=== PATIENT | female | born 1950 | race Caucasian/White ===

== ENCOUNTER 2018-07-11 13:04 | Emergency (ER) | payer MEDICARE, BC, SELFPAY ==
[2018-07-11 13:17] VITALS: BP 100/68; PULSE 74; RESP 18; TEMP 36.8; O2SAT 98; BMI 35.5
[2018-07-11] MEDS: SODIUM CHLORIDE 0.9% 1,000 ML 1000 ML IV (14:25)
[2018-07-11 14:39] LABS: INR 0.9 (0.9-1.3); Prothrombin Time 10.6 SECONDS (10.1-12.7)
[2018-07-11 14:40] LABS: Add Manual Diff / Slide Review NO; Basophils Absolute Auto 100 /uL (0-100); Basophils Percent Auto 0.7 % (0-2); Eosinophils Absolute Auto 100 /uL (0-450); Eosinophils Percent Auto 1.7 % (2-4); Hematocrit 42.1 % (36-46); Hemoglobin 13.9 g/dL (12.0-16.0); Lymphocytes Absolute Auto 1700 /uL (1100-4500); Lymphocytes Percent Auto 19.9 % (25-40); Mean Corpuscular Hemoglobin 30.9 PG (26-34); Mean Corpuscular Volume 93.6 fL (80-100); Monocytes Absolute Auto 700 /uL (0-900); Monocytes Percent Auto 7.7 % (3-14); Neutrophils Absolute Auto 6000 /uL (1500-7000); Platelet Count 319 X10^3/uL (150-400); Red Cell Distribution Width 13.6 % (11.6-14.8); White Blood Cell Count 8.6 X10^3/uL (4.5-11.0)
[2018-07-11 14:42] LABS: PTT Partial Thromboplastin Tim 26 SECONDS (26.4-36.2)
[2018-07-11 14:43] LABS: Alanine Aminotransferase 30 IU/L (9-52); Albumin 3.9 g/dL (3.5-5.0); Albumin Globulin Ratio 1.5 (1.0-2.8); Alkaline Phosphatase 80 U/L (38-126); Aspartate Aminotransferase 32 IU/L (14-36); BUN Creatinine Ratio 17.1 (6-22); Bilirubin Total 0.4 mg/dL (0.2-1.3); Blood Urea Nitrogen 12 mg/dL (7-17); Carbon Dioxide 26 mmol/L (22-32); Chloride 105 mmol/L (98-107); Creatine Kinase 78 U/L (30-135); Estimated Glomerular Filt Rate > 60.0 mL/min (>60); Globulin 2.6 g/dL (1.7-4.1); Glucose 106 mg/dL (80-110); HEMOLYSIS 18 (0-50); Potassium 4.3 mmol/L (3.4-5.1); Sodium 139 mmol/L (137-145); Total Protein 6.5 g/dL (6.3-8.2)
[2018-07-11 14:55] VITALS: BP 98/56; PULSE 65; RESP 12; O2SAT 98
[2018-07-11 14:55] LABS: Troponin I < 0.012 ng/mL (0.01-0.034)
[2018-07-11 15:37] VITALS: BP 102/53; PULSE 70; RESP 12; O2SAT 97
--- NOTE | 2018-07-11 20:11 | ED_ITS ---
HPI - Weakness <CHUCK Hernandez-BC - Last Filed: 07/11/18 20:11> General Chief complaint: Weakness Stated complaint: Side affects from meds given Time Seen by Provider: 07/11/18 14:11 Source: patient and family Mode of arrival: ambulatory Limitations: no limitations History of Present Illness HPI Narrative: The patient is a 67-year-old female current smoker with history of rectal fissure who presents with a chief complaint of dizziness and weakness immediately after using Nitro-Bid suppository. She states that her primary care physician in [place] prescribed them. She stated she started feeling weak immediately after. She denied initial chest pain, but complained of some upon arrival to the emergency department. She denies any nausea vomiting diarrhea. Does complain of tingly sensations. She denies any dysuria urgency or frequency. She denies any fever. She denies any palpitations or shortness of breath or cough. Related Data Home Medications Medication Instructions Recorded Confirmed lactulose [Constulose] 15 - 30 ml PO DAILY 07/11/18 07/11/18 nitroglycerin [Nitro-Bid] 1 applic TOPICAL BID 07/11/18 07/11/18 oxycodone-acetaminophen 1 tab PO Q6H PRN 07/11/18 07/11/18 trazodone 50 mg PO BEDTIME 07/11/18 07/11/18 Allergies Allergy/AdvReac Type Severity Reaction Status Date / Time codeine Allergy Hives Verified 07/11/18 13:26 Penicillins Allergy Hives Verified 07/11/18 13:26 Review of Systems <CHUCK Hernandez- - Last Filed: 07/11/18 20:11> Review of Systems GENERAL: Denies chills, fatigue, malaise, fever, sweats. HEENT: Denies sinus pain, ear pain, sore throat, difficulty swallowing, dizziness. RESPIRATORY: Denies dyspnea, cough, wheezing, hemoptysis, sputum. CARDIOVASCULAR: See HPI GASTROINTESTINAL: Denies nausea, vomiting, abdominal pain, diarrhea, constipation, melena. : Denies dysuria, frequency, incontinence, hematuria, urinary retention. MUSCULOSKELETAL: denies weakness, joint pain, or bony pain SKIN: Denies rash, skin lesions, or other NEUROLOGIC: Denies weakness, headache, numbness, change in speech, confusion, seizures, incoordination. PSYCHIATRIC: No concerning psychosocial issues. 12 point review of systems is negative except for those stated above PFSH <LISS Hernandez - Last Filed: 07/11/18 20:11> Medical History (Updated 07/11/18 @ 20:09 by LISS Hernandez) Rectal fissure (Acute) Social History Smoking Status: Current every day smoker Social History Smoking Status: Current every day smoker Exam <LISS Hernandez - Last Filed: 07/11/18 20:11> Narrative Exam Narrative: GENERAL: Obese female lying on stretcher HEAD: Atraumatic. Normocephalic. No temporal or scalp tenderness. EYES: Pupils equal round and reactive. Extraocular motions intact. No scleral icterus. No injection or drainage. ENT: Nose without bleeding, purulent drainage or septal hematoma. Throat without erythema, tonsillar hypertrophy or exudate. Uvula midline. Airway patent. NECK: Trachea midline. No JVD or lymphadenopathy. Supple, nontender, no meningeal signs. CARDIOVASCULAR: Regular rate and rhythm without murmurs, gallops, or rubs. RESPIRATORY: Clear to auscultation. Breath sounds equal bilaterally. No wheezes, rales, or rhonchi. No cough. No increased respiratory effort. GASTROINTESTINAL: Abdomen soft, non-tender, nondistended. No hepato- splenomegaly, or palpable masses. No guarding. EXTREMITIES: No clubbing, cyanosis, or edema. No joint tenderness, effusion, or edema noted. BACK: Nontender without deformity or crepitance. No flank tenderness. NEURO: AOx3. SKIN: No rash or erythema. Initial Vital Signs Initial Vital Signs: Vital Signs Temperature 98.3 F 07/11/18 13:17 Pulse Rate 74 07/11/18 13:17 Respiratory Rate 18 07/11/18 13:17 Blood Pressure 100/68 07/11/18 13:17 Pulse Oximetry 98 07/11/18 13:17 <Reyna Augustin DO - Last Filed: 07/19/18 07:10> Initial Vital Signs Initial Vital Signs: Vital Signs Temperature 98.3 F 07/11/18 13:17 Pulse Rate 74 07/11/18 13:17 Respiratory Rate 18 07/11/18 13:17 Blood Pressure 100/68 07/11/18 13:17 Pulse Oximetry 98 05/03/19 13:17 Course <LISS Hernandez - Last Filed: 07/11/18 20:11> Orders Ordered: Discontinued Medications Sodium Chloride (Normal Saline 0.9%) 1,000 mls @ 1,000 mls/hr IV BOLUS ONE Stop: 07/11/18 15:10 Last Infusion: 07/11/18 15:40 Dose: 0 mls/hr Admin: 07/11/18 14:25 Dose: 1,000 mls/hr Vital Signs - 8 hr 07/11/18 13:17 07/11/18 14:55 07/11/18 15:37 Temperature 98.3 F Pulse Rate 74 65 70 Respiratory Rate 18 12 12 Blood Pressure 100/68 Blood Pressure [Right Arm] 98/56 L 102/53 L Pulse Oximetry 98 98 97 <Reyna Augustin DO - Last Filed: 07/19/18 07:10> Orders Ordered: Discontinued Medications Sodium Chloride (Normal Saline 0.9%) 1,000 mls @ 1,000 mls/hr IV BOLUS ONE Stop: 07/11/18 15:10 Last Infusion: 07/11/18 15:40 Dose: 0 mls/hr Admin: 07/11/18 14:25 Dose: 1,000 mls/hr Vital Signs - 8 hr 07/11/18 13:17 07/11/18 14:55 07/11/18 15:37 Temperature 98.3 F Pulse Rate 74 65 70 Respiratory Rate 18 12 12 Blood Pressure 100/68 Blood Pressure [Right Arm] 98/56 L 102/53 L Pulse Oximetry 98 98 97 MDM - Weakness <LISS Hernandez - Last Filed: 07/11/18 20:11> Lab Data Result diagrams: 07/11/18 14:20 07/11/18 14:20 Lab Results 07/11/18 07/11/18 07/11/18 Range/Units 14:20 14:20 14:20 WBC 8.6 (4.5-11.0) X10^3/uL RBC 4.50 (4.0-5.2) X10^6/uL Hgb 13.9 (12.0-16.0) g/dL Hct 42.1 (36-46) % MCV 93.6 (80-100) fL MCH 30.9 (26-34) PG MCHC 33.0 (30-36) % RDW 13.6 (11.6-14.8) % Plt Count 319 (150-400) X10^3/uL Neut % (Auto) 70.0 (50-75) % Lymph % (Auto) 19.9 L (25-40) % Band[place] % (Auto) 7.7 (3-14) % Eos % (Auto) 1.7 L (2-4) % Baso % (Auto) 0.7 (0-2) % Neut # (Auto) 6000 (3728-6544) /uL Lymph # (Auto) 1700 (9188-9153) /uL [place] # (Auto) 700 (0-900) /uL Eos # (Auto) 100 (0-450) /uL Baso # (Auto) 100 (0-100) /uL PT 10.6 (10.1-12.7) SECONDS INR 0.9 (0.9-1.3) APTT 26 L (26.4-36.2) SECONDS Sodium 139 (137-145) mmol/L Potassium 4.3 (3.4-5.1) mmol/L Chloride 105 (98-107) mmol/L Carbon Dioxide 26 (22-32) mmol/L BUN 12 (7-17) mg/dL Creatinine 0.70 (0.52-1.04) mg/dL Estimated GFR > 60.0 (>60) mL/min BUN/Creatinine Ratio 17.1 (6-22) Glucose 106 (80-110) mg/dL Calcium 9.0 (8.4-10.2) mg/dL Total Bilirubin 0.4 (0.2-1.3) mg/dL AST 32 (14-36) IU/L ALT 30 (9-52) IU/L Alkaline Phosphatase 80 (38-126) U/L Total Creatine Kinase 78 (30-135) U/L CK-MB (CK-2) TNP CK-MB (CK-2) Rel Index TNP Troponin I < 0.012 (0.01-0.034) ng/mL Total Protein 6.5 (6.3-8.2) g/dL Albumin 3.9 (3.5-5.0) g/dL Globulin 2.6 (1.7-4.1) g/dL Albumin/Globulin Ratio 1.5 (1.0-2.8) ECG Data Attestation: I personally reviewed and interpreted this ECG as follows: Interpretation: Sinus rhythm. Ventricular rate 70. No ST elevation or depression. No ectopy noted. MDM Narrative Medical decision making narrative: The patient is a 67-year-old female who presents with a chief complaint of dizziness after taking nitroglycerin suppository. Her labs are overall normal, she had a negative troponin and a normal EKG. I discussed at length that people often feel dizzy after nitroglycerin. The patient was able to ambulate around the emergency department and felt much improved after a L of fluid. I did discuss at length that I would like to get a 2nd troponin due to nitroglycerin possibly covering up some chest pain, especially after she complained of substernal ache. The patient declined to stay in the emergency department for a 2nd troponin. She stated she would rather be discharged and come back if needed. I discussed at length return precautions of chest pain, shortness of breath or acute concern. I did offer to evaluate her fissure, and evaluate any other medication possibilities. The patient declined. She states that she would rather follow up with her primary care provider. Patient states understanding of follow-up as well as return precautions. She was hemodynamically stable throughout her stay in the emergency department <Reyna Augustin DO - Last Filed: 07/19/18 07:10> Lab Data Lab Results 07/11/18 07/11/18 07/11/18 Range/Units 14:20 14:20 14:20 WBC 8.6 (4.5-11.0) X10^3/uL RBC 4.50 (4.0-5.2) X10^6/uL Hgb 13.9 (12.0-16.0) g/dL Hct 42.1 (36-46) % MCV 93.6 (80-100) fL MCH 30.9 (26-34) PG MCHC 33.0 (30-36) % RDW 13.6 (11.6-14.8) % Plt Count 319 (150-400) X10^3/uL Neut % (Auto) 70.0 (50-75) % Lymph % (Auto) 19.9 L (25-40) % [place] % (Auto) 7.7 (3-14) % Eos % (Auto) 1.7 L (2-4) % Baso % (Auto) 0.7 (0-2) % Neut # (Auto) 6000 (9410-7165) /uL Lymph # (Auto) 1700 (9366-8254) /uL [place] # (Auto) 700 (0-900) /uL Eos # (Auto) 100 (0-450) /uL Baso # (Auto) 100 (0-100) /uL PT 10.6 (10.1-12.7) SECONDS INR 0.9 (0.9-1.3) APTT 26 L (26.4-36.2) SECONDS Sodium 139 (137-145) mmol/L Potassium 4.3 (3.4-5.1) mmol/L Chloride 105 (98-107) mmol/L Carbon Dioxide 26 (22-32) mmol/L BUN 12 (7-17) mg/dL Creatinine 0.70 (0.52-1.04) mg/dL Estimated GFR > 60.0 (>60) mL/min BUN/Creatinine Ratio 17.1 (6-22) Glucose 106 (80-110) mg/dL Calcium 9.0 (8.4-10.2) mg/dL Total Bilirubin 0.4 (0.2-1.3) mg/dL AST 32 (14-36) IU/L ALT 30 (9-52) IU/L Alkaline Phosphatase 80 (38-126) U/L Total Creatine Kinase 78 (30-135) U/L CK-MB (CK-2) TNP CK-MB (CK-2) Rel Index TNP Troponin I < 0.012 (0.01-0.034) ng/mL Total Protein 6.5 (6.3-8.2) g/dL Albumin 3.9 (3.5-5.0) g/dL Globulin 2.6 (1.7-4.1) g/dL Albumin/Globulin Ratio 1.5 (1.0-2.8) Discharge Plan Departure Patient Disposition: Home Clinical Impression: Dizziness Adverse effects of medication Qualifiers: Encounter type: initial encounter Qualified Code(s): T50.905A - Adverse effect of unspecified drugs, medicaments and biological substances, initial encounter Discharge Date/Time: 07/11/18 16:26 Interventions: ED Discharge Assessment Last Done: 07/11/18 16:27 Instructions: DI for Atypical Chest Pain, DI for Safely Taking and Storing Medications -- Adults, DI for Dizziness-Nonvertigo Activity Restrictions/Additional Instructions: I believe that the dizziness and malaise that he felt after taking your nitroglycerin suppository was related to the medication. Please follow up with primary care provider before continuing use of this medication. Nitroglycerin is a vasodilators that often leads to dizziness and headaches. Please follow up with primary care provider soon as possible. Come back to the emergency department for any acute concerns such as chest pain or shortness of breath. you have elected to leave prior to checking her cardiac labs again. If at all concerned at all about her heart please come back to this facility or follow up elsewhere. Please rest and push fluids. Prescriptions: No Action trazodone 50 mg tablet 50 mg PO BEDTIME RF: 0 oxycodone-acetaminophen 5-325 mg tablet 1 tab PO Q6H PRN (Reason: pain) RF: 0 Nitro-Bid 2 % ointment 1 applic topical BID RF: 0 lactulose [Constulose] 10 gram/15 mL solution 15 - 30 ml PO DAILY RF: 0 <Reyna Augustin DO - Last Filed: 07/19/18 07:10> Cosign ED Attending Cosprinceature Attestation: I was immediately available in the department for consultation. This do cumentation has been reviewed and I agree with assessment and plan. Supervised by Reyna Augustin DO
== END 2018-07-11 16:26 | disposition home or self-care (01) ==
PROVIDERS: Emergency Provider Nurse Practitioner Family
DX: R42 Dizziness and giddiness (principal); R53.1 Weakness; R07.9 Chest pain, unspecified; R20.2 Paresthesia of skin; T50.905A Adverse effect of unspecified drugs, medicaments and biological substances, initial encounter
CPT/HCPCS: 36591; 80053; 82550; 84484; 85025; 85610; 85730; 93005; 93041; 96360; 99283; 99284